=== PATIENT | male | born 1980 | race African-American/Black ===

== ENCOUNTER 2016-12-07 11:28 | Emergency (ER) | payer BC ==
[~2016-12-07 11:28] MED LIST: BACDS PO; P20 PO; PROAIR HFA INH; SEPTRA DS1 TAB PO; THERA-M PO
[2016-12-07 14:23] LABS: ASCORBIC ACID (UR NOT ORDER) NEG (NEG); BILIRUBIN, URINE NEGATIVE (NEG); ER URINALYSIS TAT 0 Hrs 09 Mins; KETONE, URINE TRACE MG/DL (NEG); LEUKOCYTE ESTERASE(NOT OR SMALL (NEG); NITRITE (URINE) NEG (NEG); WBC (NOT ORDERED) (RFLEX) < 1 (0-5)
[2016-12-07 14:25] LABS: BASOPHILS 0.4 %; BASOPHILS ABSOLUTE 0.03 10/3/uL (0.0-0.16); EOSINOPHILS 2.6 %; EOSINOPHILS ABSOLUTE 0.22 10/3/uL (0.0-0.53); ER CBC TAT 0 Hrs 11 Mins; HEMATOCRIT 45.1 % (40.0-51.0); HEMOGLOBIN 15.2 g/dL (13.6-17.8); IMMATURE GRANULOCYTES 0.4 %; IMMATURE GRANULOCYTES ABSOLUTE 0.03 10/3/uL (0.0-0.11); LYMPHOCYTES ABSOLUTE 3.13 10/3/uL (0.67-4.30); MEAN CORPUS HGB CONC 33.7 g/dL (32.0-36.0); MEAN CORPUSCULAR HEMOGLOB 30.9 pg (26.0-34.0); MEAN CORPUSCULAR VOLUME 91.7 fL (80-100); MEAN PLATELET VOLUME 10.1 fL (9.2-13.0); MONOCYTES ABSOLUTE 0.68 10/3/uL (0.21-1.20); NEUTROPHILS 51.6 %; NEUTROPHILS ABSOLUTE 4.36 10/3/uL (2.02-8.40); PLATELET COUNT 421 10/3/uL (150-400); RBC DISTRIBUTION WIDTH 12.7 % (12.0-16.0); RED CELL COUNT 4.92 10/6/uL (4.7-6.1); WHITE BLOOD CELLS 8.5 10/3/uL (4.5-10.5)
[2016-12-07 14:26] LABS: MANUAL DIFF NO %
[2016-12-07 14:38] LABS: A/G RATIO 0.9 (0.7-1.9); ALBUMIN 3.7 G/DL (3.5-5.0); ALKALINE PHOSPHATASE 83 U/L (45-117); BUN (BLOOD UREA NITROGEN) 10 MG/DL (6-23); CALCIUM, SERUM 8.7 MG/DL (8.5-10.4); CHLORIDE, SERUM 103 MMOL/L (96-112); CO2 (CARBON DIOXIDE) 31 MMOL/L (24-34); GFR AFRICAN AMERICAN 99 ML/MIN (>=60); GFR NON AFRICAN AMERICAN 85 ML/MIN (>=60); GLOBULIN 4.3 G/DL (2.5-4.1); GLUCOSE, SERUM 80 MG/DL (60-99); POTASSIUM, SERUM 3.6 MMOL/L (3.5-5.3); SGOT(AST) 17 U/L (5-40); SGPT(ALT) 31 U/L (5-65); SODIUM, SERUM 142 MMOL/L (135-148); TOTAL BILIRUBIN 0.3 MG/DL (0-1.2)
[2016-12-21] MEDS ORDERED: PREV30 PO (14:15)
[2016-12-21] MEDS ORDERED: LOP25 PO (14:15)
[2016-12-21] MEDS ORDERED: TRIUMEQ TABLET1 EACH PO (14:25)
[2016-12-21] MEDS ORDERED: AMB10 PO (14:29)
== END 2016-12-07 16:00 | disposition home or self-care (01) ==
LOC: ER 11:28
PROVIDERS: Physician Assistant
DX: R31.9 Hematuria, unspecified (principal); R10.13 Epigastric pain; R05 Cough; F17.200 Nicotine dependence, unspecified, uncomplicated; K21.9 Gastro-esophageal reflux disease without esophagitis; I10 Essential (primary) hypertension; Z79.899 Other long term (current) drug therapy; Z79.52 Long term (current) use of systemic steroids
CPT/HCPCS: 71020; 80053; 81001; 83690; 85025; 87040; 87086; 93005; 99285

== ENCOUNTER 2016-12-24 12:11 | Day surgery (SDC) | payer BC ==
--- NOTE | ~2016-12-24 | OP ---
Record Of Operation [facility] [address] [place]. [address] NAME: RAFFI DUVALL : 78 STATUS : [facility]#: [id number] AGE: 36 ADM/REG DATE : 12/24/16 MR#: [id number] REPORT SERV DATE: 12/24/16 DICTATED BY: Cheryl ZHAO DATE: 12/24/16 REPORT STATUS : Draft TRANSCRIBED BY: MODL DATE: 12/24/16 DATE OF PROCEDURE: 12/24/2016 PREOPERATIVE DIAGNOSIS: Microhematuria. POSTOPERATIVE DIAGNOSIS: Microhematuria. PROCEDURE: Cystoscopy, bilateral retrograde pyelography, examination under anesthesia. SURGEON: Cheryl Zhao M.D. ANESTHESIA: General. COMPLICATIONS: None. DRAINS: None. BRIEF HISTORY: Mr. Duvall is a 36-year-old, white male, with persistent microhematuria. He had some left flank pain. A CT urogram showed no evidence of stone, mass, or obstruction, and the voided urine for cytology was negative. He needed a cystoscopy to complete his workup and wanted to proceed under anesthesia. Due to his history of flank pain, we decided to proceed with retrograde pyelography as well. The risks of bleeding, infection, anesthesia, and possible need for Gresham catheter and biopsy if something abnormal was found were all discussed. There were no unanswered questions. DESCRIPTION OF PROCEDURE: Under excellent general anesthesia, the patient was prepped and draped in standard lithotomy position. Digital exam revealed 2+ symmetric smooth prostate gland. No other masses noted. He had a normal uncircumcised penis, normal scrotum. Cystoscopy was performed with 30 and 70 degree lenses, revealed a normal anterior urethra. The posterior urethra showed a collar type prostate gland without significant hypertrophy. Inspection of the bladder revealed normal ureteral orifices bilaterally effluxing clear urine. The bladder was inspected, and no tumors were noted. There were no foreign bodies or stones noted as well. An 8-Estonian cone-tipped catheter was used to perform a right retrograde pyelogram. It showed a long but normal caliber ureter without filling defect or obstruction and good drainage. Similarly, the left ureter was normal configuration without filling defect or obstruction and good drainage. The case was terminated. I plan to discharge Mr. Duvall as an outpatient with the following instructions. DISCHARGE INSTRUCTIONS: 1. Home today. 2. Pyridium 200 mg p.o. t.i.d. p.r.n. bladder pain. 3. Follow up at my office p.r.n. gross hematuria or other symptoms. DANIELLE/IGOR Record Of Operation [facility] [address] [place] [address] NAME: RAFFI DUVALL : [birth year] STATUS : [facility]#: [id number] AGE: 36 ADM/REG DATE : 12/24/16 MR#: [id number] REPORT SERV DATE: 12/24/16 DICTATED BY: Cheryl ZHAO DATE: 12/24/16 REPORT STATUS : Draft TRANSCRIBED BY: IGOR DATE: 12/24/16 Cheryl Zhao M.D. / [id number] CC: America Lyon M.D.
[~2016-12-24 12:11] MED LIST changes: +AMB10 PO; +LOP25 PO; +PREV30 PO; +TRIUMEQ TABLET1 EACH PO
== END 2016-12-24 16:13 | disposition home or self-care (01) ==
LOC: SDC 12:11
PROC: BT14YZZ Fluoroscopy of Kidneys, Ureters and Bladder using Other Contrast (ICD-10-PCS; principal; 2016-12-24 13:45)
DX: R31.1 Benign essential microscopic hematuria (principal); I10 Essential (primary) hypertension; Z21 Asymptomatic human immunodeficiency virus [HIV] infection status; Z79.899 Other long term (current) drug therapy
CPT/HCPCS: 74420; J2250; J2270; J2405; J3010; Q9967